=== PATIENT | female | born 1995 | race African-American/Black ===

== ENCOUNTER 2021-06-07 13:53 | Emergency (ER) | payer OTHER, SELFPAY ==
[2021-06-07 13:55] VITALS: TEMP 36.1
[2021-06-07 18:21] VITALS: BP 100/53; PULSE 95; RESP 18; O2SAT 98
--- NOTE | 2021-06-07 19:58 | PC.NURSE ---
Pt called to go to room, reports that she has been here too long and her ride is leaving. Pt ambulatory with steady gait in no obvious distress.
== END 2021-06-07 19:58 | disposition left against medical advice (07) ==
LOC: ANHED 20:01
DX: R10.11 Right upper quadrant pain (principal)
CPT/HCPCS: 99199

== ENCOUNTER → 2021-06-08 08:47 | Outpatient (CLI) | payer OTHER, SELFPAY ==
[2021-06-08 20:43] LABS: SARS-CoV-2 RNA PCR Positive
== END ==
PROVIDERS: Visit Provider Obstetrics & Gynecology
DX: U07.1 COVID-19 (principal)
CPT/HCPCS: C9803; U0003; U0005

== ENCOUNTER 2021-06-08 10:44 | Observation (INO) | payer OTHER, SELFPAY ==
[2021-06-08 11:13] VITALS: BP 126/68; PULSE 98
[2021-06-08 11:16] VITALS: BP 118/90; PULSE 99
[2021-06-08 11:31] VITALS: BP 124/64; PULSE 98
[2021-06-08 11:46] VITALS: BP 121/62; PULSE 98
[2021-06-08 12:01] VITALS: BP 113/63; PULSE 99
[2021-06-08 12:16] VITALS: BP 113/59; PULSE 98
[2021-06-08] MEDS: THIAMINE HCL INJ 100 MG, FOLIC ACID INJ 1 MG, MULTIVITAMINS-12 INJ VIAL 1 5 ML, MULTIVI... 150 MG IV CONT (12:26)
[2021-06-08] MEDS: ONDANSETRON INJ 4 MG/2 ML VIAL IV PUSH (12:27)
[2021-06-08 12:33] LABS: Add Urine Microscopic? YES; Appearance Urine Cloudy (Clear); Bacteria Urine Trace /hpf; Bilirubin Urine Negative (Negative); Blood Urine Negative (Negative); Color Urine Yellow (Yellow); Glucose Urine UA Negative (Negative); Ketones Urine Trace mg/dL (Negative); Leukocyte Esterase Ur 3+ LEU/UL (Negative); Mucus Urine Rare /lpf; Nitrate Urine Negative (Negative); Protein Urine 1+ mg/dL (Negative); Specific Grav Ur 1.017 (1.001-1.035); Squamous Epithelial Cell Urine Many /hpf (Few)
[2021-06-08 12:38] LABS: Alanine Aminotransferase 20 U/L (4-35); Albumin Level 3.2 g/dL (3.5-5.1); Alkaline Phosphatase 47 U/L (38-126); Anion Gap 8 mmol/L (8-16); Aspartate Amino Transferase 52 U/L (14-36); Bilirubin,Total 0.8 mg/dL (0.2-1.3); Blood Urea Nitrogen 5 mg/dL (7-17); Calcium 8.8 mg/dL (8.4-10.2); Carbon Dioxide 23 mmol/L (22-30); Chloride 101 mmol/L (98-107); Estimated Glomerular Filt Rate > 60; Glucose 90 mg/dL (65-110); Potassium 4.2 mmol/L (3.4-5.0); Sodium 132 mmol/L (137-145)
[2021-06-08 12:53] VITALS: BMI 39.8
--- NOTE | 2021-06-13 11:23 | PM.OBTRLD ---
OB - Triage/Final Diagnosis Visit Information Date of evaluation: 06/08/21 Reason for evaluation: decreased movement Comments/Additional reasons for admission: I have assessed the risk for this patient, Bam Franklin Eduard, and determined that she would benefit from observation care. Evaluation Laboratory results: Laboratory Tests 06/08/21 06/08/21 12:02 12:02 Sodium 132 L Potassium 4.2 Chloride 101 Carbon Dioxide 23 Anion Gap 8 BUN 5 L Creatinine 0.60 L Estim Creat Clear Calc Not Reportable Estimated GFR > 60 Glucose 90 Calcium 8.8 Total Bilirubin 0.8 AST 52 H ALT 20 Alkaline Phosphatase 47 Total Protein 6.0 L Albumin 3.2 L Urine Color Yellow Urine Appearance Cloudy H Urine pH 7.0 Ur Specific [place] 1.017 Urine Protein 1+ H Urine Glucose (UA) Negative Urine Ketones Trace Ur Blood (Man) Negative Urine Nitrate Negative Urine Bilirubin Negative Urine Urobilinogen 4.0 H Leukocyte Esterase Rfl 3+ H Urine RBC 6-10 H Urine WBC 7-9 H Ur Squamous Epith Cells Many H Urine Bacteria Trace Urine Mucus Rare
== END 2021-06-08 18:35 | disposition home or self-care (01) ==
PROVIDERS: Admitting Provider Student in an Organized Health Care Education/Training Program; Visit Provider Student in an Organized Health Care Education/Training Program
DX: O36.8190 Decreased fetal movements, unspecified trimester, not applicable or unspecified (principal); Z3A.00 Weeks of gestation of pregnancy not specified
CPT/HCPCS: 36415; 59025; 80053; 81001; 87086; 87088; 96365; 96366; 96375; C9803; G0378; G0379; J2405; J3411; J3475; J7121; U0003; U0005

== ENCOUNTER 2021-08-11 16:10 | Observation (INO) | payer OTHER, SELFPAY ==
[2021-08-11 16:29] VITALS: BMI 38.7
--- NOTE | 2021-08-11 16:30 | OBADM ---
This patient, Bam Chapa, admitted to the OB room OB Post 115 for observation. Patient/family oriented to hospital policies and general routines including ID bracelet, bed and alarms, visiting hours, pain management, procedures, bathroom and other care routines, personal items, smoking policy, room service/diet, and visiting hours. Patient/Family are encouraged to report perceived risks to care and to ask questions if they do not understand what they are told or what they should do.
[2021-08-11 16:48] VITALS: BP 121/69; PULSE 84
[2021-08-11 16:55] LABS: Basophils Percent Auto 0.5 % (0.2-1.2); Eosinophils Percent Auto 0.7 % (0-4.4); Hemoglobin 8.9 g/dL (12.0-15.0); Immature Granulocyte Absolute 0.03 K/mm3 (0.00-0.031); Immature Granulocyte Percent A 0.5 % (0-0.5); Lymphocytes Absolute Auto 1.89 K/mm3 (0.9-3.2); Lymphocytes Percent Auto 32.2 % (18.3-44.2); Mean Corpuscular HGB Conc 30.7 g/dl (32-36); Mean Corpuscular Hemoglobin 25.1 pg (26-34); Mean Corpuscular Volume 81.7 fl (80-100); Mean Platelet Volume 10.5 fl (7.4-10.4); Monocytes Absolute Auto 0.5 K/mm3 (0.1-0.6); Monocytes Percent Auto 8.5 % (2.6-8.5); Neutrophils Absolute Auto 3.4 K/mm3 (1.3-6.7); Neutrophils Percent Auto 57.6 % (45.5-73.1); Nucleated Red Blood Cells Absolute Auto 0.1 K/mm3 (0.0-0.012); Nucleated Red Blood Cells Perc 0.9 % (0.0-0.2); Platelet Count Result 210 k/mm3 (150-375); Red Blood Count 3.55 M/mm3 (4.2-5.4); Red Cell Distribution Width 14.3 % (11.5-14.5); White Blood Count 5.9 K/mm3 (4.5-10.0)
[2021-08-11 17:00] LABS: Creatinine Urine 165.1 mg/dL; Total Protein Urine Random 82 mg/dL
[2021-08-11 17:01] VITALS: BP 124/77; PULSE 83
[2021-08-11 17:03] LABS: Add Urine Microscopic? YES; Appearance Urine Cloudy (Clear); Bacteria Urine 1+ /hpf; Bilirubin Urine Negative (Negative); Blood Urine Negative (Negative); Color Urine Yellow (Yellow); Glucose Urine UA Negative (Negative); Ketones Urine Negative (Negative); Leukocyte Esterase Ur 3+ LEU/UL (NEGATIVE); Mucus Urine Few /lpf; Nitrate Urine Negative (Negative); Protein Urine 2+ mg/dL (Negative); RBC Urine 21-50 /hpf (0-2); Squamous Epithelial Cell Urine Many /hpf (Few); WBC Urine 51-75 /hpf (0-3)
[2021-08-11 17:08] VITALS: BP 124/77; PULSE 83
[2021-08-11 17:13] LABS: Alanine Aminotransferase 109 U/L (4-35); Albumin Level 2.9 g/dL (3.5-5.1); Alkaline Phosphatase 67 U/L (38-126); Anion Gap 4 mmol/L (8-16); Aspartate Amino Transferase 108 U/L (14-36); Bilirubin,Total 0.6 mg/dL (0.2-1.3); Blood Urea Nitrogen 11 mg/dL (7-17); Calcium 7.8 mg/dL (8.4-10.2); Carbon Dioxide 24 mmol/L (22-30); Chloride 105 mmol/L (98-107); Estimated CRCL calculation 120 ml/min; Estimated Glomerular Filt Rate > 60; Glucose 109 mg/dL (65-110); Potassium 3.6 mmol/L (3.4-5.0); Sodium 133 mmol/L (137-145); Uric Acid 7.1 mg/dL (2.5-7.5)
[2021-08-11 17:16] VITALS: BP 127/61; PULSE 85
[2021-08-11 17:31] VITALS: BP 118/63; PULSE 82
[2021-08-11 17:46] VITALS: BP 112/65; PULSE 80
[2021-08-11] MEDS: BETAMETHASONE SOD PHOS/ACETATE 30 MG/5 ML VIAL 12 MG IM (17:56)
--- NOTE | 2021-09-02 11:05 | PM.OBTRLD ---
OB - Triage/Final Diagnosis Visit Information Comments/Additional reasons for admission: I have assessed the risk for this patient, Bam Chapa, and determined that she would benefit from observation care. Evaluation Laboratory results: Laboratory Tests 08/11/21 08/11/21 08/11/21 16:39 16:39 16:39 WBC 5.9 RBC 3.55 L Hgb 8.9 L Hct 29.0 L MCV 81.7 MCH 25.1 L MCHC 30.7 L RDW 14.3 Plt Count 210 MPV 10.5 H Immature Gran % (Auto) 0.5 Neut % (Auto) 57.6 Lymph % (Auto) 32.2 [place] % (Auto) 8.5 Eos % (Auto) 0.7 Baso % (Auto) 0.5 Lymph # (Auto) 1.89 [place] # (Auto) 0.5 Eos # (Auto) 0.0 Baso # (Auto) 0.0 Abs Immat Gran (auto) 0.03 Absolute Neuts (auto) 3.4 Absolute Nucleated RBC 0.1 H Nucleated RBC % 0.9 H Sodium Potassium Chloride Carbon Dioxide Anion Gap BUN Creatinine Estim Creat Clear Calc Estimated GFR Glucose Uric Acid Calcium Total Bilirubin AST ALT Alkaline Phosphatase Total Protein Albumin Urine Color Yellow Urine Appearance Cloudy H Urine pH 7.0 Ur Specific [place] 1.020 Urine Protein 2+ H Urine Glucose (UA) Negative Urine Ketones Negative Ur Blood (Man) Negative Urine Nitrate Negative Urine Bilirubin Negative Urine Urobilinogen 2.0 H Ur Leukocyte Esterase 3+ H Urine RBC 21-50 H Urine WBC 51-75 H Ur Squamous Epith Cells Many H Urine Bacteria 1+ H Urine Mucus Few H U Random Total Protein 82 Urine Creatinine 165.1 Protein/Creat Ratio 2 0.50 H 08/11/21 16:39 WBC RBC Hgb Hct MCV MCH MCHC RDW Plt Count MPV Immature Gran % (Auto) Neut % (Auto) Lymph % (Auto) [place] % (Auto) Eos % (Auto) Baso % (Auto) Lymph # (Auto) [place] # (Auto) Eos # (Auto) Baso # (Auto) Abs Immat Gran (auto) Absolute Neuts (auto) Absolute Nucleated RBC Nucleated RBC % Sodium 133 L Potassium 3.6 Chloride 105 Carbon Dioxide 24 Anion Gap 4 L BUN 11 D Creatinine 0.60 L Estim Creat Clear Calc 120 Estimated GFR > 60 Glucose 109 Uric Acid 7.1 Calcium 7.8 L Total Bilirubin 0.6 AST 108 H ALT 109 H Alkaline Phosphatase 67 Total Protein 6.0 L Albumin 2.9 L Urine Color Urine Appearance Urine pH Ur Specific [place] Urine Protein Urine Glucose (UA) Urine Ketones Ur Blood (Man) Urine Nitrate Urine Bilirubin Urine Urobilinogen Ur Leukocyte Esterase Urine RBC Urine WBC Ur Squamous Epith Cells Urine Bacteria Urine Mucus U Random Total Protein Urine Creatinine Protein/Creat Ratio 2 Final Diagnosis (1) Headache: Code(s): R51.9 - Headache, unspecified Status: Acute
== END 2021-08-11 17:57 | disposition home or self-care (01) ==
LOC: ANHOBPP 16:17
PROVIDERS: Admitting Provider Obstetrics & Gynecology; Visit Provider Obstetrics & Gynecology
DX: O26.893 Other specified pregnancy related conditions, third trimester (principal); Z3A.36 36 weeks gestation of pregnancy; R51.9 Headache, unspecified
CPT/HCPCS: 36415; 59025; 80053; 81001; 82570; 84156; 84550; 85025; 87086; 87088; 96372; G0378; G0379; J0702

== ENCOUNTER 2021-08-12 16:59 | Outpatient (CLI) | payer OTHER, SELFPAY ==
[2021-08-12] MEDS: BETAMETHASONE SOD PHOS/ACETATE 30 MG/5 ML VIAL 12 MG IM (17:20)
[2021-08-12 17:34] LABS: Basophils Percent Auto 0.1 % (0.2-1.2); Hematocrit 31.9 % (37.0-47.0); Hemoglobin 9.6 g/dL (12.0-15.0); Immature Granulocyte Absolute 0.11 K/mm3 (0.00-0.031); Immature Granulocyte Percent A 0.9 % (0-0.5); Lymphocytes Absolute Auto 1.57 K/mm3 (0.9-3.2); Lymphocytes Percent Auto 12.4 % (18.3-44.2); Mean Corpuscular HGB Conc 30.1 g/dl (32-36); Mean Corpuscular Hemoglobin 24.6 pg (26-34); Mean Corpuscular Volume 81.8 fl (80-100); Mean Platelet Volume 10.6 fl (7.4-10.4); Monocytes Absolute Auto 0.9 K/mm3 (0.1-0.6); Monocytes Percent Auto 7.1 % (2.6-8.5); Neutrophils Absolute Auto 10.1 K/mm3 (1.3-6.7); Neutrophils Percent Auto 79.5 % (45.5-73.1); Nucleated Red Blood Cells Absolute Auto 0.1 K/mm3 (0.0-0.012); Nucleated Red Blood Cells Perc 0.4 % (0.0-0.2); Platelet Count Result 233 k/mm3 (150-375); Red Cell Distribution Width 14.4 % (11.5-14.5); White Blood Count 12.7 K/mm3 (4.5-10.0)
[2021-08-12 17:41] LABS: Alanine Aminotransferase 137 U/L (4-35); Albumin Level 3.1 g/dL (3.5-5.1); Alkaline Phosphatase 76 U/L (38-126); Anion Gap 6 mmol/L (8-16); Aspartate Amino Transferase 120 U/L (14-36); Bilirubin,Total 0.8 mg/dL (0.2-1.3); Blood Urea Nitrogen 10 mg/dL (7-17); Calcium 9.2 mg/dL (8.4-10.2); Carbon Dioxide 23 mmol/L (22-30); Chloride 106 mmol/L (98-107); Estimated Glomerular Filt Rate > 60; Glucose 136 mg/dL (65-110); Potassium 4.3 mmol/L (3.4-5.0); Sodium 135 mmol/L (137-145)
[2021-08-12 17:59] LABS: Creatinine Urine 247.1 mg/dL; Total Protein Urine Random 47 mg/dL; Ur Ttl Prot Creatinine Ratio 0.19 mg/mg (0-0.20)
--- NOTE | 2021-08-12 18:09 | PC.NURSE ---
1801-- Called Dr. Oliva reviewed lab results, see provider tomorrow in office. Blood pressure 139/77.
== END 2021-08-12 17:00 | disposition home or self-care (01) ==
LOC: ANHOBOP 17:03
PROVIDERS: Visit Provider Obstetrics & Gynecology
DX: Z34.90 Encounter for supervision of normal pregnancy, unspecified, unspecified trimester (principal); Z3A.00 Weeks of gestation of pregnancy not specified
CPT/HCPCS: 36415; 80053; 82570; 84156; 84550; 85025; 96372; J0702

== ENCOUNTER 2021-08-14 04:44 | Inpatient (IN) | payer OTHER, SELFPAY ==
[2021-08-14] VITALS (99 sets, daily range): BP systolic 62–159; BP diastolic 43–103; PULSE 81–120; RESP 16–20; TEMP 36.7–37.2; O2SAT 94–100; BMI 46.9
--- NOTE | 2021-08-14 05:23 | LDADM ---
This patient, Bam Chapa, was admitted to Labor/Delivery/Recovery 102 on 08/14/21 at 04:44. Plans for labor, pain management and were discussed with patient. Patient/family oriented to hospital policies and general routines including ID bracelet, bed and alarms, visiting hours, pain management, procedures, bathroom and other care routines, personal items, smoking policy, room service/diet and guest tray routines, infant security routines, and visiting hours. Patient/Family are encouraged to report perceived risks to care and to ask questions if they do not understand what they are told or what they should do. See OBIX for further documentation.
[2021-08-14 05:29] LABS: Basophils Percent Auto 0.1 % (0.2-1.2); Eosinophils Percent Auto 0.1 % (0-4.4); Hematocrit 30.7 % (37.0-47.0); Hemoglobin 9.2 g/dL (12.0-15.0); Immature Granulocyte Absolute 0.16 K/mm3 (0.00-0.031); Immature Granulocyte Percent A 1.5 % (0-0.5); Lymphocytes Absolute Auto 1.94 K/mm3 (0.9-3.2); Lymphocytes Percent Auto 18.6 % (18.3-44.2); Mean Corpuscular Hemoglobin 24.4 pg (26-34); Mean Corpuscular Volume 81.4 fl (80-100); Mean Platelet Volume 10.4 fl (7.4-10.4); Monocytes Absolute Auto 0.9 K/mm3 (0.1-0.6); Monocytes Percent Auto 8.8 % (2.6-8.5); Neutrophils Absolute Auto 7.4 K/mm3 (1.3-6.7); Neutrophils Percent Auto 70.9 % (45.5-73.1); Nucleated Red Blood Cells Absolute Auto 0.1 K/mm3 (0.0-0.012); Nucleated Red Blood Cells Perc 1.2 % (0.0-0.2); Platelet Count Result 241 k/mm3 (150-375); Red Blood Count 3.77 M/mm3 (4.2-5.4); Red Cell Distribution Width 14.5 % (11.5-14.5); White Blood Count 10.4 K/mm3 (4.5-10.0)
[2021-08-14] MEDS: OXYTOCIN 30 UNITS/NS 500 ML 30 UNITS/500 ML BAG IV CONT (05:34)
[2021-08-14] MEDS: LACTATED RINGERS 1,000 ML 125 ML IV CONT (05:34)
[2021-08-14 05:39] LABS: Alanine Aminotransferase 108 U/L (4-35); Albumin Level 2.9 g/dL (3.5-5.1); Alkaline Phosphatase 71 U/L (38-126); Anion Gap 3 mmol/L (8-16); Aspartate Amino Transferase 67 U/L (14-36); Bilirubin,Total 0.5 mg/dL (0.2-1.3); Blood Urea Nitrogen 12 mg/dL (7-17); Calcium 8.9 mg/dL (8.4-10.2); Carbon Dioxide 26 mmol/L (22-30); Chloride 106 mmol/L (98-107); Estimated CRCL calculation 116 ml/min; Estimated Glomerular Filt Rate > 60; Glucose 127 mg/dL (65-110); Potassium 3.6 mmol/L (3.4-5.0); Sodium 135 mmol/L (137-145)
[2021-08-14 06:06] LABS: Uric Acid 6.5 mg/dL (2.5-7.5)
--- NOTE | 2021-08-14 06:15 | WPDANESEPP ---
Anes - Eval Pre Procedure Procedure: Labor epidural Date/Time: 08/14/21 06:15 Surgeon: Jesi Ramsey Preop Diagnosis: Abd pain with contractions Pre Op Diagnosis: IOL Patient Data Age: 25 Gender: F Height: 1.52 m Weight: 109 kg Last Vital Signs Pulse 87 08/14/21 06:01 BP 139/89 08/14/21 06:01 Allergies Allergy/AdvReac Type Severity Reaction Status Date / Time No Known Allergies Allergy Verified 06/07/21 13:58 Home Medications Medication Instructions Recorded Confirmed Type ondansetron HCl [Zofran] 4 mg PO Q6H #30 tablet 06/08/21 08/13/21 Rx Gummies 2 gummy PO DAILY 08/11/21 08/13/21 History Laboratory Tests 08/14/21 08/14/21 08/14/21 05:19 05:19 05:19 WBC 10.4 K/mm3 H K/mm3 (4.5-10.0) RBC 3.77 M/mm3 L M/mm3 (4.2-5.4) Hgb 9.2 g/dL L g/dL (12.0-15.0) Hct 30.7 % L % (37.0-47.0) MCV 81.4 fl fl (80-100) MCH 24.4 pg L pg (26-34) MCHC 30.0 g/dl L g/dl (32-36) RDW 14.5 % % (11.5-14.5) Plt Count 241 k/mm3 k/mm3 (150-375) MPV 10.4 fl fl (7.4-10.4) Immature Gran % (Auto) 1.5 % H % (0-0.5) Neut % (Auto) 70.9 % % (45.5-73.1) Lymph % (Auto) 18.6 % % (18.3-44.2) [place] % (Auto) 8.8 % H % (2.6-8.5) Eos % (Auto) 0.1 % % (0-4.4) Baso % (Auto) 0.1 % L % (0.2-1.2) Lymph # (Auto) 1.94 K/mm3 K/mm3 (0.9-3.2) [place] # (Auto) 0.9 K/mm3 H K/mm3 (0.1-0.6) Eos # (Auto) 0.0 K/mm3 K/mm3 (0-0.3) Baso # (Auto) 0.0 K/mm3 K/mm3 (0.0-0.1) Abs Immat Gran (auto) 0.16 K/mm3 H K/mm3 (0.00-0.031) Absolute Neuts (auto) 7.4 K/mm3 H K/mm3 (1.3-6.7) Absolute Nucleated RBC 0.1 K/mm3 H K/mm3 (0.0-0.012) Nucleated RBC % 1.2 % H % (0.0-0.2) Sodium 135 mmol/L L mmol/L (137-145) Potassium 3.6 mmol/L mmol/L (3.4-5.0) Chloride 106 mmol/L mmol/L (98-107) Carbon Dioxide 26 mmol/L mmol/L (22-30) Anion Gap 3 mmol/L L mmol/L (8-16) BUN 12 mg/dL mg/dL (7-17) Creatinine 0.70 mg/dL mg/dL (0.7-1.0) Estim Creat Clear Calc 116 ml/min ml/min Estimated GFR > 60 (59 - ) Glucose 127 mg/dL H mg/dL (65-110) Uric Acid 6.5 mg/dL mg/dL (2.5-7.5) Calcium 8.9 mg/dL mg/dL (8.4-10.2) Total Bilirubin 0.5 mg/dL mg/dL (0.2-1.3) AST 67 U/L H U/L (14-36) ALT 108 U/L H U/L (4-35) Alkaline Phosphatase 71 U/L U/L (38-126) Total Protein 6.0 g/dL L g/dL (6.3-8.2) Albumin 2.9 g/dL L g/dL (3.5-5.1) RPR 08/14/21 05:19 WBC RBC Hgb Hct MCV MCH MCHC RDW Plt Count MPV Immature Gran % (Auto) Neut % (Auto) Lymph % (Auto) [place] % (Auto) Eos % (Auto) Baso % (Auto) Lymph # (Auto) [place] # (Auto) Eos # (Auto) Baso # (Auto) Abs Immat Gran (auto) Absolute Neuts (auto) Absolute Nucleated RBC Nucleated RBC % Sodium Potassium Chloride Carbon Dioxide Anion Gap BUN Creatinine Estim Creat Clear Calc Estimated GFR Glucose Uric Acid Calcium Total Bilirubin AST ALT Alkaline Phosphatase Total Protein Albumin RPR Pending Patient hx anesthesia problems: none Family hx anesthesia problems: none Results Review: All pre-operative results and documents have been reviewed as part of the pre-operative evaluation. [facility] Past Medical History Medical History Hypertension Migraines Morbid obesity PIH ( induced hypertension) and not yet delivered
--- NOTE | 2021-08-14 07:43 | PM.IMHP ---
H&P: HPI History of Present Illness Date/Time: 08/14/21 07:43 [age] year the 37 weeks gestation for induction labor secondary to worsening blood pressures. She has elevated 24hour urine as well as mildly elevated liver function tests. She has an early ultrasound confirming dates making her 37 weeks. She did receive 2 doses of Celestone prior to induction. Chief Complaint: Elevated blood pressures at term Review of Systems Review of Systems: All systems reviewed & are unremarkable except as noted in HPI and below PMFSH Past Medical History Medical History Hypertension Migraines Morbid obesity PIH ( induced hypertension) and not yet delivered Family History Family History Father Hypertension Diabetes mellitus Mother Hypertension Social History Social History Smoking status: Never smoker Second hand tobacco smoke exposure: No Substance use: never Spiritual care concerns: No Meds Home Medications and Allergies Home Medications Medication Instructions Recorded Confirmed Type ondansetron HCl [Zofran] 4 mg PO Q6H #30 tablet 06/08/21 08/13/21 Rx Gummies 2 gummy PO DAILY 08/11/21 08/13/21 History Allergies Allergy/AdvReac Type Severity Reaction Status Date / Time No Known Allergies Allergy Verified 06/07/21 13:58 Vital Signs Vital Signs - 24 hr 08/14/21 05:10 08/14/21 05:42 08/14/21 06:01 Pulse Rate 95 91 87 Blood Pressure 120/67 127/58 L 139/89 08/14/21 06:31 08/14/21 07:01 08/14/21 07:32 Pulse Rate 85 86 85 Blood Pressure 145/96 H 150/92 H 159/101 H Exam Const: General: no acute distress Eyes: General: appearance normal, both eyes and all related structures Neck: Neck: supple and no JVD Thyroid: thyroid normal Resp: Effort & Inspection: normal respiratory effort Auscultation: clear to auscultation bilaterally Cardio: Rate: regular rate Rhythm: regular rhythm GI: Inspection: non-distended GI Palp: Yes Soft to palpation, No Tenderness to palpation present (GI) and No Guarding due to palpation present (GI) Auscultation: normal bowel sounds : External Female Exam: normal external appearance Speculum Exam - Vagina: normal appearance of the vagina Speculum Exam - Cervix: normal appearance of the cervix and Cervical os closed (Cervix 3/60%/-1. AROM clear. FHTs reassuring) Bimanual exam- vagina & uterus: non-tender and enlarged (Gravid and soft) Skin: General skin exam: no rashes or lesions noted Extrem: General: normal to inspection and no edema Psych: Mental Status: mental status grossly normal Affect: normal affect H&P: Results Labs Labs: Short CBC 08/14/21 Range/Units 05:19 WBC 10.4 H (4.5-10.0) K/mm3 Hgb 9.2 L (12.0-15.0) g/dL Hct 30.7 L (37.0-47.0) % Plt Count 241 (150-375) k/mm3 BMP 08/14/21 05:19 Sodium 135 L Potassium 3.6 Chloride 106 Carbon Dioxide 26 BUN 12 Creatinine 0.70 Glucose 127 H Calcium 8.9 Liver Function 08/14/21 Range/Units 05:19 Total Bilirubin 0.5 (0.2-1.3) mg/dL AST 67 H (14-36) U/L ALT 108 H (4-35) U/L Alkaline Phosphatase 71 (38-126) U/L Albumin 2.9 L (3.5-5.1) g/dL Assessment and Plan Additional Plan Impression: 37 week with gestational hypertension/-induced hypertension Plan: Medical left from labor. Spontaneous vaginal delivery is expected. She has an epidural candidate. She is negative for group B strep
[2021-08-14 10:35] LABS: Rapid Plasma Reagin Non-Reactive (NonReactive)
[2021-08-14] MEDS: ONDANSETRON INJ 4 MG/2 ML VIAL IV PUSH (11:53)
--- NOTE | 2021-08-14 12:01 | PM.OBPNLAB ---
Pain Control Date/time seen: 08/14/21 12:01 Pain control: tolerating well and epidural Pelvic Exam Dilation (cm): 9 Effacement (%): 100 station: -1 Amniotic membrane status: Ruptured Contractions Contraction pattern: Regular Status status: Category ll
--- NOTE | 2021-08-14 13:24 | PM.OBPRVD ---
OB - Delivery Note Procedure Delivery date: 08/14/21 Events: Gestational Hypertension Delivery augmentation: Rupture of Membranes Delivery monitor: External FHT Route of delivery: Episiotomy description: None Laceration Description: None Quantitative Blood Loss (ml): 59 Anesthesia type: Epidural Disposition: Floor [place] Baby Date of : 08/14/21 Time of : 13:15 Weeks of gestation at delivery: 37 Infant gender: Male presentation: vertex position: Right Occiput Anterior Placenta delivery description: Spontaneous Cord Vessel Description: 3 Vessels score one minute: 7 score five minutes: 8
[2021-08-14] MEDS: OXYTOCIN 30 UNITS/NS 500 ML 30 UNITS/500 ML BAG 125 UNITS IV CONT (13:39)
[2021-08-14] MEDS: ACETAMINOPHEN 325 MG TABLET 650 MG PO ×2 (15:23→21:27)
[2021-08-14] MEDS: WITCH HAZEL 40 PADS 1 PAD TOPICAL (15:23)
[2021-08-14] MEDS: BENZOCAINE 20% AER SPR (*SP) 56 GM CAN 1 SPRAY TOPICAL (15:23)
--- NOTE | 2021-08-14 16:03 | PC.NURSE ---
Patient transferred to post room #291 via wheelchair. Support person present. Oriented to unit, room, information board, rooming in, admission packet and security measures. Patient verbalizes understanding.
[2021-08-14] MEDS: POLYSACCHARIDE IRON COMPLEX 150 MG CAPSULE PO (19:51)
[2021-08-14] MEDS: IBUPROFEN 600 MG TABLET PO (21:27)
[2021-08-15 04:11] VITALS: BP 126/84; PULSE 76; RESP 20; TEMP 36.6; O2SAT 98
[2021-08-15 05:28] LABS: Hematocrit 28.1 % (37.0-47.0); Hemoglobin 8.3 g/dL (12.0-15.0)
--- NOTE | 2021-08-15 07:46 | PM.OBPNVD ---
OB - PN: Subj Subjective Date/time seen: 08/15/21 07:46 Patient comments: no complaints and pain well controlled baby status: doing well OB - PN: Obj Data Labs CBC & Chem 7: 08/15/21 04:30 08/14/21 05:19 Labs: Laboratory Results - last 24 hr 08/14/21 08/15/21 05:19 04:30 Hgb 8.3 L Hct 28.1 L RPR Non-reactive OB - PN A/P Plan day: 1 Plan: routine care Time Spent With Patient Time: Total time spent is greater than 50% in coordination of care (as documented) at patient's floor/unit and/or counseling patient: Time with patient: less than 15 minutes Review of Systems Review of Systems: All systems reviewed & are unremarkable except as noted in HPI and below Exam Const: General: no acute distress Eyes: General: appearance normal, both eyes and all related structures Neck: Neck: supple and no JVD Thyroid: thyroid normal Resp: Effort & Inspection: normal respiratory effort Auscultation: clear to auscultation bilaterally Cardio: Rate: regular rate Rhythm: regular rhythm GI: Inspection: non-distended GI Palp: Yes Soft to palpation, No Tenderness to palpation present (GI) and No Guarding due to palpation present (GI) Auscultation: normal bowel sounds : General: Yes bladder normal to palpation External Female Exam: normal external appearance Speculum Exam - Vagina: normal vaginal discharge and No vaginal bleeding Speculum Exam - Cervix: nontender Bimanual exam- vagina & uterus: bladder normal to palpation and No Cervical tenderness present OB/external & speculum: No vaginal bleeding Skin: General skin exam: no rashes or lesions noted Extrem: General: normal to inspection and no edema Psych: Mental Status: mental status grossly normal Affect: normal affect
[2021-08-15 08:15] VITALS: BP 131/83; PULSE 75; RESP 18; TEMP 36.2; O2SAT 100
[2021-08-15] MEDS: POLYSACCHARIDE IRON COMPLEX 150 MG CAPSULE PO ×2 (08:30→16:45)
[2021-08-15] MEDS: MULTIVIT/MIN/PREN/FOL AC/IRON TABLET 1 TAB PO (08:30)
[2021-08-15] MEDS: DOCUSATE SODIUM 100 MG CAPSULE PO (08:30)
[2021-08-15] MEDS: IBUPROFEN 600 MG TABLET PO ×3 (08:31→23:31)
--- NOTE | 2021-08-15 09:58 | WPDANLDPN2 ---
Anes-Prog Note L&D Date/Time: 08/15/21 09:58 Comfortable throughout: labor and delivery Neuraxial method: epidural Epidural/Spinal procedure site: clean & non-tender Neuro status: Neuro function grossly intact. Cardiovascular status: normal Respiratory status: normal Airway patency: baseline Mental status: baseline Post-Op hydration status: normal Vital Signs: Last Vital Signs Temp 36.2 C L 08/15/21 08:15 Pulse 75 08/15/21 08:15 Resp 18 08/15/21 08:15 BP 131/83 08/15/21 08:15 Pulse Ox 100 08/15/21 08:15 Pain score (VAS): 0 I/O: Intake & Output 08/14/21 08/15/21 08/15/21 23:59 07:59 15:59 Intake Total 400 Output Total 840 Balance -440 Post-procedural complaints: none Patient feedback: Patient satisfied with anesthetic care.
[2021-08-15 11:56] VITALS: BP 131/85; PULSE 78; RESP 18; TEMP 36.4
[2021-08-15] MEDS: ACETAMINOPHEN 325 MG TABLET 650 MG PO ×2 (16:46→23:32)
[2021-08-15 18:45] VITALS: BP 128/80; PULSE 88; RESP 16; TEMP 36.7
--- NOTE | 2021-08-16 07:05 | P.DS_ITS ---
DS: Admitting Diagnosis Discharge Date 08/16/2021 Admitting Diagnosis 37 week with chronic hypertension and superimposed PIH DS: Summary Hospital Course Hospital Course: patient was admitted for induction of labor 37 weeks gestation with elevated blood pressures, proteinuria, and elevated liver enzymes. Her blood pressures actually were fairly calm and remained so during her stay. She underwent spontaneous vaginal delivery and her hospital course was unremarkable. She remained afebrile. She was up, voiding without difficulty, ambulating, generally without complaints. She was also bottle feeding Time Spent with Patient Time attestation: Total time spent providing and/or coordinating discharge services: Exam Const: General: no acute distress Eyes: General: appearance normal, both eyes and all related structures Neck: Neck: supple and no JVD Thyroid: thyroid normal Resp: Effort & Inspection: normal respiratory effort Auscultation: clear to auscultation bilaterally Cardio: Rate: regular rate Rhythm: regular rhythm GI: Inspection: non-distended GI Palp: Yes Soft to palpation, No Tenderness to palpation present (GI) and No Guarding due to palpation present (GI) Auscultation: normal bowel sounds : General: Yes bladder normal to palpation External Female Exam: normal external appearance Speculum Exam - Vagina: normal vaginal discharge and No vaginal bleeding Speculum Exam - Cervix: nontender Bimanual exam- vagina & uterus: bladder normal to palpation and No Cervical tenderness present OB/external & speculum: No vaginal bleeding Skin: General skin exam: no rashes or lesions noted Extrem: General: normal to inspection and no edema Psych: Mental Status: mental status grossly normal Affect: normal affect Discharge Plan Discharge Attending physician on discharge: Clint Rubio Discharging Clinician: Clint Rubio Patient Disposition: Home, Self-Care Activity: may shower, no straining and pelvic rest Diet: heart healthy Wound Care Instructions: follow printed instructions Patient Instructions: Antibiotic Form Stand Alone Forms: General Discharge Information Follow-up/Referrals: Clint Rubio MD [Physician] - Discharge Medications: Continued ondansetron HCl [Zofran] 4 mg Tablet 4 mg PO Q6H Qty: 30 RF: 0 Gummies 2 gummy PO DAILY RF: 0 Date of admission: 08/14/21 04:44 Primary Care Provider: PHYSICIAN,PUBLICATION SPECIALIST Admitting Provider: Clint Ruboi Attending physician on admission: Clint Rubio Condition: Stable
--- NOTE | 2021-08-16 07:07 | PM.OBPNVD ---
OB - PN: Subj Subjective Date/time seen: 08/16/21 07:08 Patient comments: no complaints and pain well controlled baby status: doing well OB - PN: Obj Data Labs CBC & Chem 7: 08/15/21 04:30 08/14/21 05:19 OB - PN A/P Plan day: 2 Plan: routine care, discharge home and follow up 6 weeks Time Spent With Patient Time: Total time spent is greater than 50% in coordination of care (as documented) at patient's floor/unit and/or counseling patient: Time with patient: less than 15 minutes Review of Systems Review of Systems: All systems reviewed & are unremarkable except as noted in HPI and below Exam Const: General: no acute distress Eyes: General: appearance normal, both eyes and all related structures Neck: Neck: supple and no JVD Thyroid: thyroid normal Resp: Effort & Inspection: normal respiratory effort Auscultation: clear to auscultation bilaterally Cardio: Rate: regular rate Rhythm: regular rhythm GI: Inspection: non-distended GI Palp: Yes Soft to palpation, No Tenderness to palpation present (GI) and No Guarding due to palpation present (GI) Auscultation: normal bowel sounds : General: Yes bladder normal to palpation External Female Exam: normal external appearance Speculum Exam - Vagina: normal vaginal discharge and No vaginal bleeding Speculum Exam - Cervix: nontender Bimanual exam- vagina & uterus: bladder normal to palpation and No Cervical tenderness present OB/external & speculum: No vaginal bleeding Skin: General skin exam: no rashes or lesions noted Extrem: General: normal to inspection and no edema Psych: Mental Status: mental status grossly normal Affect: normal affect
[2021-08-16 07:40] VITALS: BP 130/79; PULSE 74; RESP 18; TEMP 37; O2SAT 100
--- NOTE | 2021-08-16 08:00 | PC.NURSE ---
PT introductions made and plan of care discussed per post , pain management, bottle feeding, daily care activities and pending discharge to home. PT verbalized understanding of such care. PT sole recipient of such instructions and no barriers to learning identified at this time. Pt received instructions per one to one discussion, mom baby care guide book and demonstrations this shift.
[2021-08-16 08:30] VITALS: PULSE 74; RESP 18; O2SAT 100
[2021-08-16] MEDS: ACETAMINOPHEN 325 MG TABLET 650 MG PO (08:31)
[2021-08-16] MEDS: DOCUSATE SODIUM 100 MG CAPSULE PO (08:31)
[2021-08-16] MEDS: POLYSACCHARIDE IRON COMPLEX 150 MG CAPSULE PO (08:31)
[2021-08-16] MEDS: IBUPROFEN 600 MG TABLET PO (08:32)
--- NOTE | 2021-08-16 14:45 | PC.NURSE ---
PT discharged to home ambulatory accompanied by infant and taken to waiting car. Follow up appts confirmed
--- NOTE | 2021-08-16 15:12 | PC.NURSE ---
Pt received discharge instructions per protocol and verbalized understanding of such care.
== END 2021-08-16 14:45 | disposition home or self-care (01) | DRG 560 ==
LOC: ANHLDR 04:50 → ANHOB2 16:09
PROVIDERS: Admitting Provider Obstetrics & Gynecology; Visit Provider Obstetrics & Gynecology
DX: O14.94 Unspecified pre-eclampsia, complicating childbirth (principal); Z37.0 Single live birth; Z3A.37 37 weeks gestation of pregnancy; O69.81X0 Labor and delivery complicated by cord around neck, without compression, not applicable or unspecified; R94.5 Abnormal results of liver function studies
CPT/HCPCS: 36415; 80053; 84550; 85014; 85018; 85025; 86592; 86850; 86900; 86901; A9270; J2405; J2590; J2795; J7120

== ENCOUNTER 2023-02-16 08:48 | Emergency (ER) | payer OTHER, SELFPAY ==
[2023-02-16 09:02] VITALS: BP 133/81; PULSE 79; RESP 16; TEMP 36.8; O2SAT 99
--- NOTE | 2023-02-16 09:21 | ED.SKABFB ---
HPI - Skin/Abscess/Foreign Bdy General Chief complaint: Neck Pain/Injury Stated complaint: Left Side Neck Pain Time Seen by Provider: 02/16/23 09:15 Source: patient and RN notes reviewed Mode of arrival: ambulatory Limitations: no limitations History of Present Illness HPI narrative: Patient presents today complaining of left-sided neck pain and swelling since yesterday. Currently rates her pain 5/10, which increases with movement of the neck. She has tried no [id number] treatment prior to arrival. Denies any current sick symptoms, but states she had a sore throat last week. Related Data Allergies Allergy/AdvReac Type Severity Reaction Status Date / Time No Known Allergies Allergy Verified 02/16/23 09:00 Review of Systems Review of Systems: CONSTITUTIONAL: Denies body aches, fever, chills, or sweats. EYES: Denies visual changes, redness, or discharge. ENT: Denies rhinorrhea, congestion, sore throat, or otalgia. CARDIOVASCULAR: Denies chest pain, palpitations, or edema. RESPIRATORY: Denies cough or dyspnea. GASTROINTESTINAL: Denies abdominal pain, nausea, vomiting, or diarrhea. GENITOURINARY: Denies dysuria or hematuria. SKIN: Denies rash, itching, or wounds. MUSCULOSKELETAL: Denies back pain, joint pain, or myalgia. +Left neck pain and swelling NEUROLOGIC: Denies headache, numbness, tingling, or weakness. PSYCH: Denies depression or anxiety. [facility] Past Medical History Medical History Hypertension Migraines Morbid obesity PIH ( induced hypertension) and not yet delivered Family History Family History Father Hypertension Diabetes mellitus Mother Hypertension Social History Social History Smoking status: Never smoker Second hand tobacco smoke exposure: No Substance use: never Spiritual care concerns: No Comments At time of signature, I have reviewed and agree with nursing past medical, surgical, social and family history unless otherwise noted. Please see nursing chart for further information. There is no relevant family history pertinent to the presenting complaint Exam Narrative: GENERAL: Well-appearing, well-nourished, and in no acute distress. HEAD: Normocephalic, atraumatic. EYES: EOMI. No redness or drainage. Conjunctivae normal. ENT: Mucous membranes pink and moist. Nares clear. No rhinorrhea. TMs normal bilaterally. Throat normal. Uvula midline. NECK: Normal AROM. Supple. Left anterior cervical chain lymph node swelling and tenderness. CHEST: No respiratory distress. EXTREMITIES: Normal range of motion. No edema. SKIN: Warm, dry, no rash. Capillary refill normal. Normal skin turgor. NEURO: No focal deficits. Alert and oriented x3. Gait steady. PSYCH: Normal affect. No signs of depression or anxiety. Right UR Course Course Level of Care: Express Care Visit Vital Signs Vital signs: Vital Signs Temperature 98.3 F 02/16/23 09:02 Pulse Rate 79 02/16/23 09:02 Respiratory Rate 16 02/16/23 09:02 Blood Pressure 133/81 02/16/23 09:02 Pulse Oximetry 99 02/16/23 09:02 Oxygen Delivery Room Air 02/16/23 09:02 Temperature 98.3 F 02/16/23 09:02 Pulse Rate 79 02/16/23 09:02 Respiratory Rate 16 02/16/23 09:02 Blood Pressure 133/81 02/16/23 09:02 Pulse Oximetry 99 02/16/23 09:02 Oxygen Delivery Room Air 02/16/23 09:02 Reviewed MDM - Skin/Abscess/Foreign Bdy MDM Narrative Medical decision making narrative: Patient's exam shows swelling in 1 lymph node in the left anterior cervical chain. Instructed patient that this is likely self-limiting and to take an NSAID for her discomfort. Patient agrees with plan and PCP follow-up within the next 10-14 days if symptoms do not improve. Differential Diagnosis Differential diagnosis:
== END 2023-02-16 09:37 | disposition home or self-care (01) ==
PROVIDERS: Emergency Provider Nurse Practitioner
DX: R59.1 Generalized enlarged lymph nodes (principal); I10 Essential (primary) hypertension; E66.01 Morbid (severe) obesity due to excess calories; Z68.41 Body mass index [BMI] 40.0-44.9, adult
CPT/HCPCS: 99211; G0463